=== PATIENT | male | born 1995 | race Caucasian/White ===

== ENCOUNTER 2021-09-05 11:06 | Emergency (ER) | payer SELFPAY ==
[2021-09-05 11:46] LABS: Absolute Lymphocytes (CBC) 1.3 K/uL (0.7-4.9); Hematocrit 42.1 % (39.6-49.0); Lymphocytes % 24.6 % (15.3-44.8); MPV 9.4 fL (7.6-11.3); RBC Red Blood Cell Count 5.31 M/uL (4.33-5.43)
[2021-09-05 12:11] LABS: Albumin 3.8 g/dL (3.4-5.0); Bilirubin Direct 0.1 mg/dL (0-0.2); Bilirubin Total 0.3 mg/dL (0.2-1.0); Potassium 4.4 mmol/L (3.5-5.1); Protein, Total 7.5 g/dL (6.4-8.2); Troponin High Sensitivity 4.5 pg/mL (<58.9)
[2021-09-05 12:13] LABS: Protime INR 1.09
--- NOTE | 2021-09-05 12:22 | RAD REPORT ---
EXAM DESCRIPTION: RAD - Chest Single View - 09/05/2021 11:42 am CLINICAL HISTORY: CHEST PAIN COMPARISON: None TECHNIQUE: AP portable chest image was obtained 09/05/2021 11:42 am . FINDINGS: Lungs are clear. Heart and vasculature are normal. No measurable pleural effusion and no p neumothorax. No acute bony abnormality seen. No acute aortic findings suspected. IMPRESSION: No acute cardiopulmonary process.
--- NOTE | 2021-09-05 14:24 | RAD REPORT ---
EXAM DESCRIPTION: US - Abdomen Exam Limited - 09/05/2021 1:00 pm CLINICAL HISTORY: ABD PAIN COMPARISON: No comparisons FINDINGS: Gallbladder size is normal. There is no wall thickening or pericholecystic fluid. No mobil e gallstones are seen. There are several less than 3 mm sized nonshadowing echogenic foci adherent to the kwon of the gallbladder. These are most likely small polyps rather than adherent stones or tume factive sludge. No common duct stone or biliary tree dilatation identified. IMPRESSION: Multiple small gallbladder polyps are present. No stones, sludge or other significant ga llbladder finding. No biliary tree abnormality.
--- NOTE | 2021-09-05 16:26 | ER ---
Nurse's Notes [facility] Name: Abhijeet Garsia II Age: 26 yrs Sex: Male : 1995 Arrival Date: 09/05/2021 Time: 11:08 Bed 13 Private MD: Diagnosis: Chest pain, unspecified;Dyspnea Presentation: 09/05 11:14 Chief complaint: Patient states: Epigastric pain, radiates to right side, feels like jl7 tightness and "In the center of my chest is feels tight." x 2 days, got worse today after eating 2 honey buns. Coronavirus screen: At this time, the client does not indicate any symptoms associated with coronavirus-19. Ebola Screen: No symptoms or risks identified at this time. Initial Sepsis Screen: Does the patient meet any 2 criteria? No. Patient's initial sepsis screen is negative. Does the patient have a suspected source of infection? No. Patient's initial sepsis screen is negative. Risk Assessment: Do you want to hurt yourself or someone else? Patient reports no desire to harm self or others. Onset of symptoms was September 04, 2021. 11:14 Method Of Arrival: Wheelchair jl7 11:14 Acuity: ABDULLAHI 2 jl7 Triage Assessment: 11:16 General: Appears in no apparent distress. uncomfortable, Behavior is calm, cooperative, jl7 appropriate for age. Pain: Complains of pain in epigastric area Pain radiates to chest and right upper quadrant Pain currently is 7 out of 10 on a pain scale. Cardiovascular: Patient's skin is warm and dry. Historical: - Allergies: 11:16 Codeine; jl7 - Home Meds: 11:16 None [Active]; jl7 - PMHx: 11:16 None; jl7 - PSHx: 11:16 Right hand; jl7 - Immunization history:: Client reports having NOT received the Covid vaccine. - Social history:: Smoking status: Patient denies any tobacco usage or history of. Screenin:10 Abuse screen: Denies threats or abuse. jh6 11:10 Nutritional screening: No deficits noted. Tuberculosis screening: No symptoms or risk jh6 factors identified. Fall Risk None identified. Assessment: 12:00 General: Appears uncomfortable, Behavior is calm, cooperative. Pain: Complains of pain jh6 in epigastric area Pain radiates to right upper quadrant Pain currently is 5 out of 10 on a pain scale. Quality of pain is described as crampy, pressure, Pain began suddenly, Is intermittent, Aggravated by increased activity. GI: Abdomen is flat, Abd is soft Abd is non tender X 4 quads Reports upper abdominal pain, Patient currently denies nausea. 13:00 Reassessment: No changes from previously documented assessment. Patient and/or family 6 updated on plan of care and expected duration. Pain level reassessed. Patient is alert, oriented x 3, equal unlabored respirations, skin warm/dry/pink. 13:00 General: Appears in no apparent distress. Behavior is calm, cooperative. Pain: jh6 Complains of pain in abdomen. 15:19 Reassessment: Patient is alert, oriented x 3, equal unlabored respirations, skin jh6 warm/dry/pink. states pain only when taking a deep breath. palpation of upper abd does help pain, when present. 17:00 Reassessment: Patient is alert, oriented x 3, equal unlabored respirations, skin jh6 warm/dry/pink. Patient denies pain at this time. Patient states symptoms have improved. Vital Signs: 11:14 BP 129 / 84; Pulse 85; Resp 17; Temp 98; Pulse Ox 100% ; Weight 81.65 kg; Height 6 ft. jl7 1 in. (185.42 cm); Pain 7/10; 14:00 BP 118 / 78; Pulse 81; Resp 17; Pulse Ox 100% ; jh6 15:20 BP 121 / 71; Pulse 80; Resp 17; Temp 98.0(O); Pain 1/10; jh6 17:25 BP 110 / 76; Pulse 74; Resp 17; Pulse Ox 100% ; Pain 2/10; jh6 11:14 Body Mass Index 23.75 (81.65 kg, 185.42 cm) jl7 ED Course: 11:08 Patient arrived in ED. jj6 11:10 Bed in low position. Call light in reach. Side rails up X 1. Pulse ox on. NIBP on. jh6 11:10 Inserted saline lock: 20 gauge in right antecubital area, using aseptic technique. 6 Blood collected. 11:16 Triage completed. jl7 11:16 Arm band placed on right wrist. jl7 11:17 Eveline Landin, RN is Primary Nurse. [facility] 11:19 Javed Arana PA is PHCP. [facility] 11:19 Reynaldo Farrell MD is Attending Physician. [facility] 11:42 XRAY Chest (1 view) In Process Unspecified. EDMS 13:00 US Abdomen Limited In Process Unspecified. EDMS 15:21 Patient maintains SpO2 saturation greater than 95% on room air. jh6 17:25 IV discontinued, intact, bleeding controlled, No redness/swelling at site. Pressure 6 dressing applied. 17:26 No provider procedures requiring assistance completed. jh6 Administered Medications: No medications were administered Outcome: 16:26 Discharge ordered by MD. [facility] 17:10 Discharged to home ambulatory. 6 17:10 Condition: good [facility] 17:10 Discharge instructions given to patient, Instructed on discharge instructions, follow up and referral plans. Demonstrated understanding of instructions, follow-up care, medications, Prescriptions given X 1. 17:26 Patient left the ED. [facility] Signatures: Dispatcher [employer] EDRI Javed Arana PA PA Dhruv Samson, RN RN jl7 Eveline Haas jj6 Eveline Landin, RN RN jh6
--- NOTE | 2021-09-05 16:26 | EDPHYS ---
Physician Documentation [facility] Name: Abhijeet Garsia II Age: 26 yrs Sex: Male : 1995 Arrival Date: 09/05/2021 Time: 11:08 Bed 13 Private MD: ED Physician Reynaldo Farrell HPI: 09/05 11:21 This 26 yrs old Male presents to ER via Wheelchair with complaints of Chest Pain, jmm Shortness Of Breath, Chest Tightness, Dizziness. 11:21 The patient or guardian reports chest pain that is located primarily in the substernal jmm area, epigastric area. The pain radiates to Abdomen. Associated signs and symptoms: Pertinent negatives:. This is a 26-year-old male with no known chronic medical conditions presents emerged department with substernal chest pain and epigastric pain which began approximately 3 weeks ago and intensified today. Patient states that he also has a sensation of shortness of breath. Denies cough or congestion or fever. [place] history of cardiac disease.. Historical: - Allergies: 11:16 Codeine; jl7 - Home Meds: 11:16 None [Active]; jl7 - PMHx: 11:16 None; jl7 - PSHx: 11:16 Right hand; jl7 - Immunization history:: Client reports having NOT received the Covid vaccine. - Social history:: Smoking status: Patient denies any tobacco usage or history of. ROS: 11:21 Constitutional: Negative for fever, chills, and weight loss. jmm 11:21 Cardiovascular: Positive for chest pain. 11:21 Respiratory: Positive for shortness of breath. 11:21 Abdomen/GI: Positive for abdominal pain. 11:21 All other systems are negative. Exam: 11:21 Constitutional: This is a well developed, well nourished patient who is awake, alert, jmm and in no acute distress. Head/Face: atraumatic. Eyes: EOMI, no conjunctival erythema appreciated ENT: Moist Mucus Membranes Neck: Trachea midline, Supple Chest/axilla: Normal chest wall appearance and motion. Cardiovascular: Regular rate and rhythm. No edema appreciated Respiratory: Normal respirations, no respiratory distress appreciated Abdomen/GI: Non distended, soft Back: Normal ROM 11:21 Skin: Appearance: Color: normal in color. 11:21 Neuro: Orientation: is normal, Mentation: is normal, Memory: is normal. 11:21 Psych: Behavior/mood is pleasant, cooperative. Vital Signs: 11:14 BP 129 / 84; Pulse 85; Resp 17; Temp 98; Pulse Ox 100% ; Weight 81.65 kg; Height 6 ft. 7 1 in. (185.42 cm); Pain 7/10; 14:00 BP 118 / 78; Pulse 81; Resp 17; Pulse Ox 100% ; jh6 15:20 BP 121 / 71; Pulse 80; Resp 17; Temp 98.0(O); Pain 1/10; jh6 17:25 BP 110 / 76; Pulse 74; Resp 17; Pulse Ox 100% ; Pain 2/10; jh6 11:14 Body Mass Index 23.75 (81.65 kg, 185.42 cm) 7 MDM: 12:16 Patient medically screened. [facility] 16:25 Data reviewed: vital signs, nurses notes. [facility] 16:25 Counseling: I had a detailed discussion with the patient and/or guardian regarding: the [facility] historical points, exam findings, and any diagnostic results supporting the discharge/admit diagnosis, lab results, radiology results, the need for further work-up and treatment in the hospital, to return to the emergency department if symptoms worsen or persist or if there are any questions or concerns that arise at home. 09/05 11:21 Order name: Basic Metabolic Panel; Complete Time: 12:17 [facility] 09/05 11:21 Order name: CBC with Diff; Complete Time: 12:17 [facility] 09/05 11:21 Order name: LFT's; Complete Time: 12:17 [facility] 09/05 11:21 Order name: Magnesium; Complete Time: 12:17 [facility] 09/05 11:21 Order name: NT PRO-BNP; Complete Time: 12:17 [facility] 09/05 11:21 Order name: PT-INR; Complete Time: 12:17 [facility] 09/05 11:21 Order name: Troponin HS; Complete Time: 12:17 [facility] 09/05 11:21 Order name: XRAY Chest (1 view); Complete Time: 12:24 [facility] 09/05 11:21 Order name: EKG; Complete Time: 11:22 [facility] 09/05 11:21 Order name: Cardiac monitoring; Complete Time: 12:18 [facility] 09/05 11:21 Order name: EKG - Nurse/Tech; Complete Time: 12:18 [facility] 09/05 11:21 Order name: Lipase; Complete Time: 12:17 [facility] 09/05 12:17 Order name: D-Dimer; Complete Time: 13:25 [facility] 09/05 12:20 Order name: US Abdomen Limited; Complete Time: 14:28 [facility] 09/05 11:21 Order name: IV Saline Lock; Complete Time: 12:18 [facility] 09/05 11:21 Order name: Labs collected and sent; Complete Time: 12:18 [facility] 09/05 11:21 Order name: O2 Per Protocol; Complete Time: 12:18 [facility] 09/05 11:21 Order name: O2 Sat Monitoring; Complete Time: 12:18 [facility] Administered Medications: No medications were administered Disposition: 19:29 Co-signature as Attending Physician, Reynaldo Farrell MD I agree with the assessment and kdr plan of care. Disposition Summary: 09/05/21 16:26 Discharge Ordered Location: Home [facility] Condition: Stable [facility] Diagnosis - Chest pain, unspecified [facility] - Dyspnea [facility] Followup: [facility] - With: Private Physician - When: 2 - 3 days - Reason: Recheck today's complaints, Continuance of care, Re-evaluation by your physician Discharge Instructions: - Discharge Summary Sheet [facility] - Nonspecific Chest Pain, Adult [facility] Forms: - Medication Reconciliation Form [facility] - Thank You Letter [facility] - Antibiotic Education [facility] - Prescription Opioid Use [facility] Prescriptions: - Pepcid 20 mg Oral Tablet - take 1 tablet by ORAL route every 12 hours for 10 days; 20 tablet; Refills: 0, [facility] Product Selection Permitted Signatures: Dispatcher [employer] Reynaldo Monteiro MD MD kdr Mickail, Joel, PA PA [facility] Dhruv Sesay, RN RN jl7
[2021-09-05 17:31] VITALS: O2SAT 100
[2021-09-05 17:33] VITALS: TEMP 98
[2021-09-05 17:34] VITALS: BP 110/76
== END 2021-09-05 17:26 | disposition home or self-care (01) ==
LOC: ER 11:06
DX: R07.9 Chest pain, unspecified (principal); R06.00 Dyspnea, unspecified; Z88.5 Allergy status to narcotic agent
CPT/HCPCS: 36415; 71045; 76705; 80048; 80076; 83690; 83735; 83880; 84484; 85025; 85379; 85610; 93005; 99284